=== PATIENT | female | born 1985 | race Caucasian/White ===

== ENCOUNTER 2016-10-02 01:29 | Emergency (ER) | payer BC ==
[~2016-10-02] VITALS: Ht 162.6 cm; Wt 69.4 kg
[2016-10-02 02:27] LABS: BASOPHIL % 0.3 % (0-2); PLATELET COUNT 273 x10^3mcL (130-400)
[2016-10-02 02:31] LABS: RED CELL DISTRIBUTION WIDTH 17.6 % (11.5-14.5)
[2016-10-02 02:36] LABS: microscopic required? YES; urine erythrocyte TRACE (NEGATIVE)
[2016-10-02 02:37] LABS: CALCIUM 8.1 mg/dL (8.5-10.1); CHLORIDE SERUM 101 mmol/L (98-107); GFR1 > 60 mL/min; GLUCOSE SERUM 126 mg/dL (74-106); SODIUM SERUM 136 mmol/L (136-145)
[2016-10-02 02:42] LABS: ALBUMIN 3.4 g/dL (3.4-5.0); ALKALINE PHOSPHATASE 62 U/L (46-116); ALT/SGPT 23 U/L (14-59); AMYLASE 56 U/L (25-115); AST/SGOT 17 U/L (15-37); BILIRUBIN TOTAL 0.4 mg/dL (0.20-1.00); LIPASE 105 IU/L (73-393); TOTAL PROTEIN, SERUM 7.5 g/dL (6.4-8.2)
[2016-10-02 04:14] VITALS: BP 101/59
== END 2016-10-02 04:14 | disposition home or self-care (01) ==
LOC: ED 01:29
PROVIDERS: Emergency Medicine
DX: N12 Tubulo-interstitial nephritis, not specified as acute or chronic (principal); Z88.0 Allergy status to penicillin
CPT/HCPCS: J1885; J7030; Q0092